=== PATIENT | female | born 1940 | race Asian ===

== ENCOUNTER 2018-10-18 14:00 | Emergency (ER) | payer MEDICARE, OTHER ==
[2018-10-18 14:15] LABS: ADD MAN DIFF? NO
[2018-10-18 14:19] LABS: BASOPHILS % 0.4 % (0.0-2.0); EOSINOPHILS # 0.2 10^3/ul (0.0-0.5); EOSINOPHILS % 1.6 % (0.0-7.0); HEMATOCRIT 30.8 % (37.0-47.0); HEMOGLOBIN 9.9 g/dl (12.0-16.0); LYMPHOCYTES # 1.2 10^3/ul (0.8-2.9); LYMPHOCYTES % 10.9 % (15.0-51.0); MEAN CORPUSCULAR HEMOGLOBIN 28.9 pg (29.0-33.0); MEAN CORPUSCULAR HGB CONC 32.1 g/dl (32.0-37.0); MEAN CORPUSCULAR VOLUME 89.8 fl (82.0-101.0); MEAN PLATELET VOLUME 9.4 fl (7.4-10.4); MONOCYTE # 0.7 10^3/ul (0.3-0.9); MONOCYTES % 6.7 % (0.0-11.0); NEUTROPHIL # 8.8 10^3/ul (1.6-7.5); NEUTROPHILS % 79.9 % (39.0-77.0); PLATELET COUNT 590 10^3/UL (140-415); RED BLOOD COUNT 3.43 10^6/ul (4.20-5.40); RED CELL DISTRIBUTION WIDTH 12.3 % (11.5-14.5)
[2018-10-18] MEDS: morphine 4 MG/ML VIAL IV (14:26)
[2018-10-18] MEDS: ONDANSETRON 4 MG INJ IV (14:26)
[2018-10-18] MEDS: SOD CHLORIDE 0.9% 1,000 ML IV (14:26)
[2018-10-18 14:36] LABS: INR 0.98; PARTIAL THROMBOPLASTIN TIME 30.8 Sec (23.0-35.0); PROTIME 13.1 Sec (11.9-14.9)
[2018-10-18 14:38] LABS: ANION GAP 11 (5-13); BLOOD UREA NITROGEN 21 mg/dl (7-20); CALCIUM 9.4 mg/dl (8.4-10.2); CARBON DIOXIDE 30 mmol/L (21-31); CHLORIDE 98 mmol/L (97-110); CREATININE 0.92 mg/dl (0.44-1.00); GLUCOSE 129 mg/dl (70-220); POTASSIUM 3.9 mmol/L (3.5-5.1); SODIUM 139 mmol/L (135-144)
[2018-10-18 14:50] LABS: B-TYPE NATRIURETIC PEPTIDE 1060 PG/ML (0-450); TROPONIN-I < 0.012 ng/ml (0.000-0.120)
[2018-10-18] MEDS: IOHEXOL 100 ML (15:54)
[2018-10-18] MEDS: SOD CHLORIDE 0.9% 100 ML (15:54)
[2018-10-18] MEDS ORDERED: ACETAMINOPHEN 325 MG TAB PO (17:30)
[2018-10-18] MEDS ORDERED: ONDANSETRON 4 MG INJ IV (17:30)
[2018-10-18] MEDS: ASPIRIN 81 MG TAB PO (17:33)
== END 2018-10-18 17:51 | disposition home or self-care (01) ==
LOC: E/R 14:00
DX: R07.9 Chest pain, unspecified (principal); R40.2142 Coma scale, eyes open, spontaneous, at arrival to emergency department; R40.2362 Coma scale, best motor response, obeys commands, at arrival to emergency department; R40.2252 Coma scale, best verbal response, oriented, at arrival to emergency department; E11.9 Type 2 diabetes mellitus without complications; I10 Essential (primary) hypertension; Z79.01 Long term (current) use of anticoagulants; Z79.4 Long term (current) use of insulin; Z95.2 Presence of prosthetic heart valve; Z79.82 Long term (current) use of aspirin
CPT/HCPCS: 36415; 71045; 71275; 80048; 83880; 84484; 85025; 85610; 85730; 96374; 96375; 99285-25